=== PATIENT | female | born 1985 | race Caucasian/White ===

== ENCOUNTER 2017-09-18 05:03 | Outpatient (CLI) | payer BC | END 2017-09-18 23:59 | disposition home or self-care (01) | LOC: DIABETIC 05:03 | PROVIDERS: ATTEND Family Medicine | DX: E11.9 Type 2 diabetes mellitus without complications (principal) | CPT/HCPCS: G0108 ==

== ENCOUNTER 2023-09-09 11:01 | Emergency (ER) | payer BC ==
[~2023-09-09] VITALS: Ht 172.7 cm; Wt 178.8 kg
[2023-09-09 11:12] VITALS: BP 142/85; PULSE 102; TEMP 97.7; O2SAT 94
[2023-09-09] MEDS ORDERED: CYCL-1 PO (11:34)
[2023-09-09] MEDS ORDERED: PRED20TA PO (11:34)
[2023-09-09] MEDS ORDERED: diazepam inj 5 MG/ML inj. IM ONE (11:35)
[2023-09-09] MEDS ORDERED: ketorolac trometh inj. 60 MG/2 ML VIAL IM ONE (11:35)
[2023-09-09 11:44] VITALS: RESP 18
== END 2023-09-09 11:51 | disposition home or self-care (01) ==
LOC: ER 11:02
DX: M54.31 Sciatica, right side (principal); E03.9 Hypothyroidism, unspecified; E11.9 Type 2 diabetes mellitus without complications; Z88.0 Allergy status to penicillin; Z79.899 Other long term (current) drug therapy
CPT/HCPCS: 96372; 99284; J1885; J3360

== ENCOUNTER 2023-10-08 07:40 | Emergency (ER) | payer BC ==
[~2023-10-08] VITALS: Ht 172.7 cm; Wt 176.0 kg
[~2023-10-08 07:40] MED LIST: CYCL-1 PO; PRED20TA PO
[2023-10-08 08:38] VITALS: BP 147/96; PULSE 93; O2SAT 95
[2023-10-08] MEDS ORDERED: LOSA50TA64 (08:38)
[2023-10-08] MEDS ORDERED: EMPA10TA (08:38)
[2023-10-08] MEDS ORDERED: LEVO25TA (08:38)
[2023-10-08] MEDS ORDERED: BUPR75TA3 (08:38)
[2023-10-08] MEDS ORDERED: TIRZ10PE (08:38)
[2023-10-08] MEDS ORDERED: DULO20CA50 (08:38)
[2023-10-08] MEDS ORDERED: ketorolac trometh. 30mg/ml inj. IM ONE (09:40)
[2023-10-08 10:13] VITALS: RESP 16
[2023-10-08 10:57] VITALS: TEMP 98.1
== END 2023-10-08 10:58 | disposition home or self-care (01) ==
LOC: ER 07:40
DX: M79.671 Pain in right foot (principal); E07.9 Disorder of thyroid, unspecified; E11.9 Type 2 diabetes mellitus without complications; Z88.0 Allergy status to penicillin; Z88.1 Allergy status to other antibiotic agents; Z79.899 Other long term (current) drug therapy
CPT/HCPCS: 93971; 96372; 99285; J1885

== ENCOUNTER 2025-08-14 17:19 | Emergency (ER) | payer BC, MEDICAID ==
[~2025-08-14] VITALS: Ht 172.7 cm; Wt 189.1 kg
[~2025-08-14 17:19] MED LIST changes: +BUPR75TA3; +DULO20CA50; +EMPA10TA; +LEVO25TA; +LOSA50TA64; -PRED20TA PO; +TIRZ10PE
[2025-08-14 17:32] VITALS: BP 151/89; PULSE 123; RESP 24; TEMP 102.9; O2SAT 95
--- NOTE | 2025-08-14 17:49 | ELECTROCARDIOGRAPH REPORT ---
[facility] Test Date: 2025-08-14 Test Time: 17:47:59 Pat Name: MARCY RIVER Department: EMERGENCY ROOM Patient ID: [facility]-[id number] Room: Gender: F Communications Strategist: LAURIE : 1985 Requested By: BEST [place] Order Number: [id number] Reading MD: Dr. AUBREY Srivastava Measurements Intervals [place] Rate: 128 P: 48 PA: 131 QRS: -47 QRSD: 75 T: 50 QT: 284 QTc: 415 Interpretive Statements Sinus tachycardia Left axis deviation Abnormal inferior Q waves Anterior infarct, old Electronically Signed On 08-16-2025 13:08:[address] AUBREY Srivastava Please click the below link to view image of tracing.
--- NOTE | 2025-08-14 18:09 | RADIOLOGY REPORT ---
CHEST RADIOGRAPH Indication: R/O PNEUMONIA Technique: Single frontal view of the chest was obtained COMPARISON: None FINDINGS: Lines and Tubes: None Lungs: Patchy bilateral airspace opacities, greater throughout the right upper lobe. Pleura: No effusion. No pneumothorax. Cardiomediastinal contours: Unremarkable Bones: Unremarkable IMPRESSION: Patchy bilateral airspace opacities, greater throughout the right upper lobe. Findings are concerning for pneumonia
[2025-08-14 18:45] LABS: MEAN PLATELET VOLUME 7.8 FL (7.4-10.4); RED CELL DISTRIBUTION WIDTH 14.5 % (11.5-14.5)
[2025-08-14 19:00] LABS: CREATININE 0.87 MG/DL (0.40-0.90); TOTAL CARBON DIOXIDE 28.2 MMOL/L (24-32); eCRCL 85 ML/MIN; eGFR 71 ML/MIN
[2025-08-15] MEDS ORDERED: SEMA2PEN (17:09)
== END 2025-08-14 21:31 | disposition left against medical advice (07) ==
LOC: ER 17:20
DX: R05.9 Cough, unspecified (principal); R51.9 Headache, unspecified; R07.9 Chest pain, unspecified
CPT/HCPCS: 36415; 71045; 80053; 84145; 85025; 87040; 93005; 96374; 99281; 99283; 99285

== ENCOUNTER 2025-08-15 10:07 | Inpatient (IN) | payer BC, MEDICAID ==
[2025-08-15] VITALS (8 sets, daily range): BP systolic 133–144; BP diastolic 75–93; PULSE 96–118; RESP 16–20; TEMP 97.3–99.9; O2SAT 94–97
[~2025-08-15] VITALS: Ht 172.7 cm; Wt 180.9 kg
[2025-08-15] MEDS: normal saline 1000ml 1,000 ML IV SCH (03:40)
[2025-08-15 10:43] LABS: MEAN PLATELET VOLUME 7.3 FL (7.4-10.4); RED CELL DISTRIBUTION WIDTH 14.5 % (11.5-14.5)
[2025-08-15 10:59] LABS: CREATININE 0.90 MG/DL (0.40-0.90); TOTAL CARBON DIOXIDE 28.7 MMOL/L (24-32); eCRCL 82 ML/MIN; eGFR 69 ML/MIN
--- NOTE | 2025-08-15 12:12 | Physician Documentation ---
Addendum CHIEF COMPLAINT/HPI: The patient is a 40-year-old female with a 3-4 day history of cough, malaise and chest pain. She was here yesterday and had some laboratory studies done but it was quite crowded and she never made it to a bed before she eloped. She returns today with the same symptoms. REVIEW OF SYSTEMS: Constitutional: Denies chills, fatigue, fever, weight gain or weight loss. HEENT: Denies hearing loss, sinus pressure or visual changes. Respiratory: Denies cough, shortness of breath or wheezing. Cardiovascular: Denies chest pain, pain while walking (claudication), edema or palpitations. Gastrointestinal: Denies abdominal pain, blood in stool, constipation, diarrhea, heartburn, loss of appetite, nausea or vomiting. Genitourinary: Denies painful urination (dysuria), excessive amount of urine (polyuria) or urinary frequency. Metabolic/Endocrine: Denies cold intolerance, heat intolerance, excessive thirst (polydipsia) or excessive hunger (polyphagia). Neurological: Denies dizziness, extremity numbness, extremity weakness, headaches, seizures or tremors. Psychiatric: Denies anxiety or depression. Integumentary: Denies breast discharge, breast lump, hives, mole change(s), rash or skin lesion. Musculoskeletal: Denies back pain, joint pain, joint swelling or neck pain. Hematologic: Denies easily bleeding, easily bruises, lymphedema or issues with blood clots. Immunologic: Denies food allergies or seasonal allergies. PHYSICAL EXAMINATION: Vitals and nursing note reviewed. Constitutional: General: Patient is awake, alert, oriented x 4 in no acute distress and well appearing. Speech is clear and lucid. Appearance: Normal appearance. Patient is not ill-appearing, toxic-appearing or diaphoretic. HENT: Head: Normocephalic and atraumatic. Mouth: Mucous membranes are moist. Pharynx: Oropharynx is clear. Eyes: General: No scleral icterus. Extraocular Movements: Extraocular movements intact. Pupils: Pupils are equal, round, and reactive to light. Neck: Supple, no Kernig or Brudzinski sign. Cardiovascular: Rate and Rhythm: Normal rate and regular rhythm. Heart sounds: No murmur heard. Pulmonary: Effort: Mild tachypnea. Breath sounds: Wheezing and rales right upper lung field. Abdominal: General: There is no distension. Palpations: There is no fluid wave, hepatomegaly or mass. Tenderness: There is no abdominal tenderness. There is no guarding. Musculoskeletal: General: No swelling or deformity. Skin: Coloration: Skin is not jaundiced. Findings: No erythema or rash. Neurological: Mental Status: Patient is alert. MEDICAL DECISION MAKING: This 40-year-old female has a 3-4 day history of cough associated with chest pain. She has findings on chest x-ray consistent with pneumonia in the right upper lobe. Yesterday's CBC revealed a leukocytosis although today's white count has normalized. She does meet sepsis criteria. I am going to start her on fluids and antibiotics. She will require admission. Departure Disposition: ADMITTED INPATIENT Admitted to Inpatient Unit: to hospitalist Admission Level of Care: Med/Surg with Tele Impression: Primary Impression: Pneumonia Condition: BEST Doran MD Aug 15, 2025 12:12
[2025-08-15 12:21] LABS: LEUKOCYTE ESTERASE ,URINE NEGATIVE (Neg); NITRITES, URINE POSITIVE (Neg); OCCULT BLOOD,URINE NEGATIVE (Neg)
[2025-08-15 12:29] LABS: UA COLLECTION TYPE CLN CATCH MIDSTREAM
[2025-08-15 12:30] LABS: URINE HCG NEGATIVE (NEG)
[2025-08-15 12:31] LABS: MUCUS STRANDS FEW /LPF (Neg); SQUAMOUS EPITHELIAL CELL,UR MANY /LPF (FEW)
[2025-08-15 12:36] LABS: INFLUENZA TYPE A ANTIGEN RAPID NEGATIVE (Negative); INFLUENZA TYPE B ANTIGEN RAPID NEGATIVE (Negative)
[2025-08-15] MEDS: normal saline 1000ml 1,000 ML IV ONE ×2 (12:37→13:36)
[2025-08-15] MEDS: CefTRIAXone 2gm/D5W 50ml BAG 50 ML IV ONE (12:40)
[2025-08-15] MEDS: ipratropium/albuterol 3ml nebule NEB STA (12:43)
[2025-08-15] MEDS ORDERED: mag hydrox/Alum hydrox/simeth 30ml oral suspension PO PRN (13:10)
[2025-08-15] MEDS ORDERED: potassium Cl 20 mEq SR tablet PO PRN ×4 (13:10→15:10)
[2025-08-15] MEDS ORDERED: potassium Cl 40MEQ/1/2NS 520ml 520 ML IV PRN ×2 (13:10→15:10)
[2025-08-15] MEDS ORDERED: ondansetron/PF 4mg/2ml inj IV PRN (13:10)
[2025-08-15] MEDS ORDERED: magnesium sulf-water 4G/100mL 100 ML IV PRN ×2 (13:10→15:10)
[2025-08-15] MEDS ORDERED: magnesium hydroxide 30ml (MOM) UD suspension PO PRN (13:10)
[2025-08-15] MEDS ORDERED: magnesium Cl slow-release 64mg tablet PO PRN ×2 (13:10→15:10)
[2025-08-15] MEDS ORDERED: magnesium sulf-water 2g/50mL 50 ML IV PRN ×2 (13:10→15:10)
[2025-08-15] MEDS: azithromycin/NS 500mg/250ml 250 ML IV ONE (13:13)
[2025-08-15] MEDS ORDERED: albuterol 2.5 MG/3 ML nebule NEB PRN (13:20)
[2025-08-15] MEDS ORDERED: glucagon, human recombinant 1mg kit SUBCUT PRN (13:25)
[2025-08-15] MEDS ORDERED: DEXTROSE 15 GM of carb/4 tabs (each vial/BOTTLE has 4 tablets) PO PRN ×2 (13:25)
[2025-08-15] MEDS ORDERED: dextrose 50%-water 50ml dispensing syringe IV PRN ×2 (13:25)
[2025-08-15 14:17] LABS: APTT 27 SECONDS (22-32); INR 1.1 INR
--- NOTE | 2025-08-15 14:17 | ELECTROCARDIOGRAPH REPORT ---
[facility] Test Date: 2025-08-15 Test Time: 14:15:16 Pat Name: MARCY RIVER Department: [facility] Patient ID: [id number] Room: [place] [address] Gender: F Retail Support Specialist: : 1985 Requested By: LOKESH COLLINS Order Number: [id number] Reading MD: Dr. AUBREY Srivastava Measurements Intervals [place] Rate: 107 P: 48 NM: 146 QRS: -12 QRSD: 92 T: 63 QT: 339 QTc: 453 Interpretive Statements Sinus tachycardia Low voltage, precordial leads Electronically Signed On 08-16-2025 13:08:[address] AUBREY Srivastava Please click the below link to view image of tracing.
--- NOTE | 2025-08-15 14:20 | HISTORY AND PHYSICAL-Residence ---
History & Physical Providers to Resident Creating Document: ROSALIOADENLOKESH, RES ~ History of Present Illness Primary Medical Doctor: DR. RUBEN RIVER Reason for Admit\Complaint: Cough History of Present Illness 40-year-old female with history of hypertension, type 2 diabetes mellitus, hypothyroidism, exercise-induced asthma came to the ER with symptoms of cough since 3-4 days and mild shortness of breath. She came to the ER yesterday but she left before the labs and imaging came in. She states that her cough is productive with greenish sputum. She denies nasal congestion. She reports having fever and sweats. She endorses having a bad headache, nausea and generalized body aches. She has no history of COPD, does not use oxygen at home. Her son has had dry cough for the past 2 weeks. She denies recent travel history did not have a flu shot this year. She also reports mild central constant aching type of chest pain for the past few days with no radiation. She has decreased p.o. intake for the past few days. She denies orthopnea, PND, palpitations, burning micturition, dizziness, confusion. Her PCP is Dr. Arevalo in [facility], she has recently been established with him She used to see medical claims assistant for diabetes mellitus, but due to issues with insurance, she has not been following up with the medical claims assistant She lives at home with her and children She can ambulate independently Allergies: Coded Allergies: Penicillins (Verified Allergy, Unknown, 08/15/25) vancomycin (Verified Adverse Reaction, Unknown, HORACIO SYNDROME, 08/15/25) Home Medications Home Medications Active Cyclobenzaprine* (Cyclobenzaprine HCl) 10 Mg Tablet 1 Tab PO TID Reported Mounjaro (Tirzepatide) 10 Mg/0.5 Ml Pen.injctr Jardiance (Empagliflozin) 10 Mg Tablet Wellbutrin (Bupropion HCl) 75 Mg Tablet Cymbalta (Duloxetine Hcl) 20 Mg Capsule. Levo-T (Levothyroxine Sodium) 25 Mcg Tablet Losartan Potassium 50 Mg Tablet Past Medical History Past Medical History Hypertension Type 2 diabetes mellitus Hypothyroidism Exercise-induced asthma Past Surgical History Surgical History Comment C-sections No other significant surgical history Past Social History Social History Comment She quit smoking 2 years ago, she used to smoke a pack a day for 25 years She eats marijuana edibles since she was 13 She denies alcohol use Her PCP is Dr. Arevalo in [facility], she has recently been established with him She used to see medical claims assistant for diabetes mellitus, but due to issues with insurance, she has not been following up with the medical claims assistant She lives at home with her and children She can ambulate independently Alcohol Use: Occasionally Lives In: Home ROS ROS Constitutional: Reports fever and generalized body pain, No chills, dizziness, weight gain or loss Eyes: No pain, erythema, discharge, blurring of vision ENT: No sore throat, epistaxis, tinnitus Cardiovascular: Reports chest pain, No palpitations, syncope, lower extremity edema, paroxysmal nocturnal dyspnea Respiratory: Reports Shortness of breath and cough, No hemoptysis. Gastrointestinal: Reports nausea, No Abdominal pain, vomiting, constipation,diarrhea. Normal appetite. No hematemesis or melena. Musculoskeletal: No Swelling, pain in bilateral lower legs. Integumentary: No change in skin, hair, nails. No swelling, bruising, abrasions Neurologic: Reports headache, No neck pain, numbness or tingling of the extremities, Psychiatric: No delusions, depression, loss of interest in normal activity or change in sleep pattern, hallucinations, suicidal ideations Endocrine: Reports weakness, No polydipsia, polyuria, change in appetite, heat or cold intolerance, sweating, dry skin Hematological: No bleeding, petechiae, bruising Allergies: No asthma or urticaria Exam Vitals: Vital Signs Date Time Temp Pulse Resp B/P (MAP) Pulse Ox O2 Delivery O2 Flow Rate FiO2 08/15/25 13:14 102.5 113 24 132/77 (95) 94 0 08/15/25 12:49 Room Air* 21 General: Awake , alert, and oriented x4, obese, in mild distress due to shortness of breath and cough HEENT: Atraumatic, normocephalic, EOMI, anicteric sclera ; pink conjunctiva, dry mucous membranes Neck: Trachea midline. Supple, full range of motion, no JVD Cardiac: Regular rhythm, regular rate with no murmurs all over the precordium. Respiratory: Diminished breath sounds bilaterally with wheezing, tachypneic, no rub or rales, Chest wall is symmetric and without deformity. Gastrointestinal: Abdomen symmetric, non-distended, soft, non-tender, normal bowel sounds, no hepatosplenomegaly Musculoskeletal: No pedal edema, no cyanosis Neurological: Speech is clear, alert, and oriented x 4. No motor or sensory deficit, deep tendon reflexes normal, cerebellar intact. Cranial nerves II-XII intact. Skin: Warm and dry Diagnostic Data Last Recorded Lab Results: 08/15/25 1034 08/15/25 1034 Advance Care Planning Advanced Care plannin - 30 Minutes (Full code) Additional Plan Sepsis 2/2 community-acquired pneumonia covering Gram-positive and Gram-negative organisms Possible COPD exacerbation Patient is tachypneic with respiratory rate in 20s SIRS criteria met Oxygen saturation is 95% on room air WBC is normal Procalcitonin and lactic acid are normal COVID and influenza tests are negative Chest x-ray (08/14/25) shows multifocal consolidation Wells score is 1.5, follow up D-dimer Plan: Started IV Rocephin 1 g and IV azithromycin 500 mg-day 1 IV methylprednisolone 125 mg was given Started IV methylprednisolone 40 mg b.i.d. NS at 100 mL/hour Started DuoNebs- Ipratropium/albuterol scheduled q.4h and albuterol p.r.n. Incentive spirometry Follow up sputum cultures and blood cultures UTI. Increased micturition. Patient denies burning micturition Urinalysis is positive for UTI Follow up urine cultures Follow up urine drug screen Started on IV Rocephin-day 1 Type 2 diabetes mellitus, poorly controlled Patient uses Jardiance 10 mg and Ozempic at home Follow up A1c Glucose is elevated- 277 Goal glucose is 140-180 Started Lantus 8 units h.s. Started medium-dose hyperglycemic hypoglycemic protocol Monitor glucose Hypothyroidism She used to take levothyroxine 88 mcg at home, recently discontinued in April as she was establishing care with new PCP Follow up TSH Hypertension Blood pressure is on the higher side She used to take losartan 50 mg at home, but discontinued in April Started losartan 50 mg Monitor blood pressure History of Exercise induced asthma Patient uses albuterol p.r.n. She has not had to use it for a long time Started DuoNebs # Pending med reconciliation # Morbid obesity: Advised to lose weight. She is working with her PCP. Advised sleep study as an outpatient. Apparently has some obesity hypoventilation syndrome as well. I spent a total of 18 minutes reviewing various resuscitative measures/ACP with the patient. The patient decided to be full code. Code status: Full code DVT prophylaxis: Heparin subQ GI prophylaxis: Pantoprazole 40 mg p.o. Pain management: Tylenol p.r.n. Diet/nutrition: Carb controlled diet Prognosis: Guarded Disposition: Continue IV antibiotics, steroids and DuoNebs, PT eval and DC plan Resident MD attestation: The patient note has been reviewed and supervised by senior residents PGY-2/ PGY-3. Patient was seen, examined and discussed with attending physician, Dr. Zac Collins MD Internal Medicine resident, PGY-1 Date of Service: Aug 15, 2025 Billing Provider: CHUNG HENNING MD Common Visit Codes: 35262-[id number] INP/OBS CARE (HIGH) LOKESH COLLINS, RES Aug 15, 2025 14:19 CHUNG HENNING MD Aug 18, 2025 14:08
[2025-08-15 14:26] LABS: CREATININE 0.73 MG/DL (0.40-0.90); PHOSPHORUS 1.6 MG/DL (2.3-4.5); PRO BRAIN NATRIURETIC PEPTIDE 84 PG/ML (0-125); TOTAL CARBON DIOXIDE 25.8 MMOL/L (24-32); eCRCL 101 ML/MIN; eGFR 87 ML/MIN
[2025-08-15] MEDS: ipratropium/albuterol 3ml nebule NEB SCH (15:00)
[2025-08-15] MEDS ORDERED: SEMA2PEN (17:09)
[2025-08-15] MEDS: lactobacillus rhamnosus 10,000 MMU CELLS/CAPSULE PO SCH (17:33)
[2025-08-15] MEDS: pantoprazole 40mg Tablet.DR PO SCH (17:33)
[2025-08-15] MEDS: magnesium sulf-water 2g/50mL 50 ML IV ONE (17:34)
[2025-08-15] MEDS: K and/or MAG REPLACEMENT MC SCH (20:00)
[2025-08-15] MEDS ORDERED: K and/or MAG REPLACEMENT MC SCH (20:00)
[2025-08-15] MEDS: docusate sod 100mg capsule PO SCH (20:10)
[2025-08-15] MEDS: methylPREDNISolone sod succ/PF 40mg inj. IV SCH (20:11)
[2025-08-15] MEDS: enoxaparin 40mg/0.4ml syringe SQ SCH (20:14)
[2025-08-15] MEDS: INSULIN LISPRO 100 UNIT/ML INSULN.PEN MULTI-DOSE SQ SCH (21:00)
[2025-08-15] MEDS: insulin regular, human 10 units/0.1 ml syringe IV ONE (21:03)
[2025-08-15] MEDS: insulin glargine (Lantus) pen - multi-dose SQ SCH (21:47)
[2025-08-15] MEDS: insulin regular, human U-100 10ml vial - multi-dose IV ONE (22:10)
[2025-08-16] VITALS (18 sets, daily range): BP systolic 100–156; BP diastolic 62–79; PULSE 91–108; RESP 12–22; TEMP 97–98.2; O2SAT 95–99
[2025-08-16 06:04] LABS: MEAN PLATELET VOLUME 7.9 FL (7.4-10.4); RED CELL DISTRIBUTION WIDTH 14.2 % (11.5-14.5)
[2025-08-16 06:31] LABS: CHOL/HDL RATIO 3.9 (0.00-4.99); CREATININE 0.76 MG/DL (0.40-0.90); LDL CHOLESTEROL 96 MG/DL (50-100); TOTAL CARBON DIOXIDE 20.4 MMOL/L (24-32); eCRCL 97 ML/MIN; eGFR 83 ML/MIN
[2025-08-16] MEDS: azithromycin/NS 500mg/250ml 250 ML IV SCH (07:32)
[2025-08-16] MEDS: CefTRIAXone/D5W-Rocephin 1gm 50 ML IV SCH (07:32)
[2025-08-16] MEDS: INSULIN LISPRO 100 UNIT/ML INSULN.PEN MULTI-DOSE SQ ONE (07:37)
[2025-08-16] MEDS: guaiFENesin ER 600mg tablet PO SCH (09:34)
[2025-08-16] MEDS: INSULIN LISPRO 100 UNIT/ML INSULN.PEN MULTI-DOSE SQ SCH ×2 (09:35→15:55)
--- NOTE | 2025-08-16 12:07 | PROGRESS NOTE- Residence ---
Progress Note - Resident Providers to CC Resident Creating Document: LOKESH COLLINS RES ~ Antibiotic Timeout Antibiotic Ordered?: Yes Subjective Patient was seen and examined bedside. She states she feels better, and that her cough and shortness of breath have improved. Her sputum is brownish yellowish. She reports mild headache. She denies chest pain, fever, chills, nausea, vomiting, burning micturition or any other complaints. She is saturating well on room air. Objective Vital Signs Date Time Temp Pulse Resp B/P (MAP) Pulse Ox O2 Delivery O2 Flow Rate FiO2 08/16/25 08:08 103 16 Room Air 0.0 08/16/25 08:01 97 21 08/16/25 02:00 97.0 125/79 (94) Result Diagram: 08/16/25 0538 08/16/25 0538 Awake , alert, and oriented x4, resting comfortably in the bed, in no acute distress. Morbidly obese. HEENT: Atraumatic, normocephalic, EOMI, anicteric sclera ; pink conjunctiva Neck: Trachea midline. Supple, full range of motion, no JVD Cardiac: Regular rhythm, regular rate with no murmurs all over the precordium. Respiratory: Diminished breath sounds bilaterally with wheezing, no tachypnea,,rub or rales, Chest wall is symmetric and without deformity. Gastrointestinal: Abdomen symmetric, non-distended, soft, non-tender, normal bowel sounds x4 quadrant, normoactive, no hepatosplenomegaly Musculoskeletal: No pedal edema, no cyanosis Neurological: Speech is clear, alert, and oriented x 4. No motor or sensory deficit, deep tendon reflexes normal, cerebellar intact. Cranial nerves II-XII intact. Skin: Warm and dry Coagulation Studies Laboratory Tests Test 08/15/25 13:53 Prothrombin Time 11.5 SECONDS (9.0-12.0) INR International Normalized Ratio 1.1 INR Activated Partial Thromboplast Time 27 SECONDS (22-32) D-Dimer 1.09 MG/L FEU (0-0.50) H D-Dimer Comment Coagulation Comments Assessment Assessment 40-year-old female with history of hypertension, type 2 diabetes mellitus, hypothyroidism, morbid obesity, and exercise-induced asthma admitted for management of sepsis and pneumonia. Plan Plan Sepsis 2/2 community-acquired pneumonia covering Gram-positive and Gram-negative organisms Sepsis, resolved Possible COPD exacerbation Patient is saturating well on room air WBC is normal COVID and influenza tests are negative Chest x-ray (08/14/25) shows multifocal consolidation Plan: Continue IV Rocephin 1 g and IV azithromycin 500 mg-day 2 Methylprednisolone morning dose was held due to high blood sugar Continue IV methylprednisolone 40 mg b.i.d., consider transitioning to p.o. prednisone if blood glucose levels continue to be elevated NS decreased from 100 to 75 mL/hour Continue DuoNebs- Ipratropium/albuterol scheduled q.4h and albuterol p.r.n. Incentive spirometry and flutter valve Started guaifenesin 600 mg b.i.d. Wells score is 1.5, D-dimer is mildly elevated-1.09 Follow up echo Follow up sputum cultures and blood cultures UTI Patient denies burning micturition, but complained of increased frequency in the night Urinalysis is positive for UTI Follow up urine cultures Follow up urine drug screen Continue IV Rocephin-day 2 Type 2 diabetes mellitus, poorly controlled Patient uses Jardiance 10 mg and Ozempic at home A1C is 7 Glucose is poorly controlled, 442 today-19 units of lispro was given in the a.m. Bicarbonate is 20.4, anion gap is normal, DKA unlikely Goal glucose is 140-180 Increased Lantus to 18 units h.s. On high-dose hyperglycemic hypoglycemic protocol Started lispro 6 units with meals On 60 g carb controlled diet Monitor glucose Hypothyroidism She used to take levothyroxine 88 mcg at home, recently discontinued in April as she was establishing care with new PCP TSH is normal Hypertension Blood pressure is stable She used to take losartan 50 mg at home, but discontinued in April Continue losartan 50 mg History of Exercise induced asthma Patient uses albuterol p.r.n. She has not had to use it for a long time Continue DuoNebs # Morbid obesity: Advised to lose weight. She is working with her PCP. Advised sleep study as an outpatient. Apparently has some obesity hypoventilation syndrome as well. Code status: Full code DVT prophylaxis: Heparin subQ GI prophylaxis: Pantoprazole 40 mg p.o. Pain management: Tylenol p.r.n. Diet/nutrition: 60 g Carb controlled diet Prognosis: Guarded Disposition: Continue IV antibiotics, steroids and DuoNebs, monitor glucose, PT eval and DC plan Resident MD attestation: The patient note has been reviewed and supervised by senior residents PGY-2/ PGY-3. Patient was seen, examined and discussed with attending physician, Dr. Zac Collins MD Internal Medicine resident, PGY-1 Date of Service: Aug 16, 2025 Billing Provider: CHUNG HENNING MD Common Visit Codes: [id number] INP/OBS CARE (HIGH) LOKESH COLLINS, RES Aug 16, 2025 12:07 CHUNG HENNING MD Aug 18, 2025 14:10
[2025-08-16] MEDS: PERFLUTREN PROTEIN-A MICROSPHR (Optison) 0.22 MG/ML 3ML VIAL IV ONE (12:15)
[2025-08-16 13:20] LABS: URINE AMPHETAMINE SCREEN NEGATIVE (Neg); URINE BARBITUATE SCREEN NEGATIVE (Neg); URINE BENZODIAZEPINES SCREEN NEGATIVE (Neg); URINE CANNABINOID SCREEN POSITIVE (Neg); URINE COCAINE SCREEN NEGATIVE (Neg); URINE METHADONE SCREEN NEGATIVE (Neg); URINE OPIATE SCREEN NEGATIVE (Neg); URINE PHENCYCLIDINE SCREEN NEGATIVE (Neg)
[2025-08-16] MEDS: insulin glargine (Lantus) pen - multi-dose SQ SCH (20:32)
[2025-08-17] VITALS (10 sets, daily range): BP systolic 144–152; BP diastolic 73–91; PULSE 82–116; RESP 16–18; TEMP 97.2–98.6; O2SAT 96–98
[2025-08-17 07:05] LABS: MEAN PLATELET VOLUME 7.9 FL (7.4-10.4); RED CELL DISTRIBUTION WIDTH 14.9 % (11.5-14.5)
[2025-08-17 07:49] LABS: CREATININE 0.88 MG/DL (0.40-0.90); TOTAL CARBON DIOXIDE 22.3 MMOL/L (24-32); eCRCL 84 ML/MIN; eGFR 70 ML/MIN
[2025-08-17] MEDS: INSULIN LISPRO 100 UNIT/ML INSULN.PEN MULTI-DOSE SQ SCH (08:44)
--- NOTE | 2025-08-17 09:40 | CARDIOLOGY REPORT ---
APPROVED REPORT EXAM: Comprehensive 2D, Doppler, and color-flow Echocardiogram. Patient Location: 3[address] Heart Rate: 90's bpm Rhythm: SINUS Indications SHORTNESS OF BREATH DIABETES MELLITUS 2 HYPTERTENSION CHEST PAIN Farmworker: NONE Previous echo: NONE 2D Dimensions LVDd 5.8 cm LVDs 4.3 (2.5-4.0cm) LVOT Diameter 2.05 (1.8-2.4cm) M-Mode Dimensions Left Atrium(MM) 4.43 (2.5-4.0cm) Aortic Root 2.96 (2.2-3.7cm) Aortic Cusp Exc 1.96 (1.5-2.0cm) Aortic Valve AoV Peak [place]. 177.2 cm/s AoV VTI 29.2 cm AO Peak GR. 12.6 mmHg AO Mean GR. 7 mmHg LVOT VTI 23.39 cm LVOT Peak [place]. 143.8 cm/s LOUISA(VTI)/BSA 2.64 cm2/m2 LOUISA (VTI) 2.64 cm2 AV DI 0.80 % Mitral Valve MV Peak Gr. 10 mmHg MV PHT 64 ms MVA (PHT) 3.44 cm2 MV VMax 156.4 cm/s LEFT VENTRICLE Dilated LV size with normal appearing wall thickness. Overall systolic function is normal. Overall LVEF is 55-60%. RIGHT VENTRICLE RV appears at least mildly dilated with normal function. ATRIA Left atrium is mildly dilated. AORTIC VALVE Poorly visualized AV appears normal without stenosis. No insufficiency by color and spectral flow Doppler. MITRAL VALVE Mild MV annular calcification without stenosis. Trace regurgitation by color and spectral flow Doppler. TRICUSPID VALVE TV appears structurally normal with trace regurgitation by color and spectral flow Doppler. PULMONIC VALVE Normal PV without stenosis, physiologic insufficiency by color and spectral flow Doppler. GREAT VESSELS The aortic root is normal in size. PERICARDIUM Normal pericardium. No effusion. Other Information Study Quality: Difficult due to body habitus. Conclusion Overall LVEF is 55-60%. Dilated LV size with normal appearing wall thickness. Overall systolic function is normal. RV appears at least mildly dilated with normal function. Poorly visualized AV appears normal without stenosis. No insufficiency by color and spectral flow Doppler. Mild MV annular calcification without stenosis. Trace regurgitation by color and spectral flow Doppler. TV appears structurally normal with trace regurgitation by color and spectral flow Doppler. Normal PV without stenosis, physiologic insufficiency by color and spectral flow Doppler. Normal pericardium. No effusion.
[2025-08-17] MEDS ORDERED: PRED10TA23 PO (14:21)
[2025-08-17] MEDS ORDERED: LACT1CAP26 PO (14:21)
[2025-08-17] MEDS ORDERED: ALBU2.5V7 NEB (14:21)
[2025-08-17] MEDS ORDERED: NOR5T PO (14:21)
[2025-08-17] MEDS ORDERED: GUAI600T45 PO (14:21)
[2025-08-17] MEDS ORDERED: CEFD300C3 PO (14:21)
--- NOTE | 2025-08-17 15:08 | DISCHARGE SUMMARY-Residence ---
Discharge Summary Providers to CC Resident Creating Document: LOKESH COLLINS RES CC: CHUNG HENNING MD ~ Discharge Summary Admission Diagnosis: Pneumonia Hospital Course DATE OF ADMISSION: 08/15/2025 DATE OF DISCHARGE: 08/17/2025 Discharge Diagnosis\Comment: Sepsis 2/2 community-acquired pneumonia covering Gram-positive and Gram-negative organisms COPD exacerbation UTI Type 2 diabetes mellitus, poorly controlled Hypothyroidism Hypertension History of Exercise induced asthma Operations\Procedures: none Consultants: none Complications: none Condition on DC: Stable New Medications: Cefdinir* (Cefdinir*) 300 Mg Capsule 1 CAP PO Q12H for 4 Days, #8 CAP Prednisone (Prednisone) 10 Mg Tablet 1 TABLET PO DAILY for 6 Days, #7 TABLET Please take 2 tablets (20 mg) for 2 days Take 1 tablet (10 mg) for next 2 days Take 1/2 tablet (5 mg ) for next 2 days Albuterol Sulfate (Albuterol Sulfate) 2.5 Mg/3 Ml Vial.neb 2.5 MG NEB Q2H PRN for SOB or wheezing for 30 Days, #1 INH Amlodipine Besylate (Amlodipine Besylate) 5 Mg Tablet 10 MG PO DAILY for 30 Days, #60 TAB Guaifenesin (Mucinex) 600 Mg Tablet.sa 600 MG PO Q12H for 7 Days, #7 TAB.SR Lactobacillus Rhamnosus (Culturelle) 10 Billion Cell Capsule 08560 MMU PO DAILY for 7 Days, #7 CAP Continued Medications: Losartan Potassium (Losartan Potassium) 50 Mg Tablet Semaglutide (Ozempic) 2 Mg/0.75 Ml (8 Mg/3 Ml) Pen.injctr Discharge Summary: HPI as per admitting physician: 40-year-old female with history of hypertension, type 2 diabetes mellitus, h ypothyroidism, exercise-induced asthma came to the ER with symptoms of cough since 3-4 days and mild shortness of breath. She came to the ER the previous day but she left before the labs and imaging came in. She stated that her cough was productive with greenish sputum. She denied nasal congestion. She reported having fever , sweats, headache, nausea and generalized body aches. She has no history of COPD, does not use oxygen at home. Her son has had dry cough for the past 2 weeks. She denies recent travel history did not have a flu shot this year. She also reports mild central constant aching type of chest pain for the past few days with no radiation. She stated that she had increased frequency of urination during the night. She has decreased p.o. intake for the past few days. She denies orthopnea, PND, palpitations, burning micturition, dizziness, confusion. Hospital Course: Sepsis criteria was met, patient was tachypneic with respiratory rate in 20s. She was saturating well on room air. Chest x-ray showed multifocal consolidation in the previous day. WBC procalcitonin and lactic acid were normal, COVID and influenza tests were negative. She was treated for sepsis with community-acquired pneumonia. She was started on Rocephin 1 g and azithromycin 500 mg. She was given bolus in the ER and started on NS at 100 mL/hour. IV Solu-Medrol 125 mg was given and started on IV methylprednisolone 40 mg b.i.d. Solu-Medrol was held the following day due to high blood sugar. DuoNebs were started and was encouraged to do incentive spirometry. She was started on guaifenesin 600 mg b.i.d. Her urinalysis was positive for UTI and Rocephin was continued for 3 days and she was discharged with cefdinir 300 mg b.i.d. for 4 days. She uses Jardiance 10 mg and Ozempic at home for type 2 diabetes mellitus. Her A1c is 7 and her blood sugars are poorly controlled. She was started on Lantus 8 units and placed on high-dose hyperglycemic hypoglycemic protocol. Lantus was increased to 18 units in the following day and started lispro 6 units with meals along with the high-dose hyperglycemic hypoglycemic protocol. She was on a 60 g carb controlled diet and was encouraged to continue carb controlled diet at home and monitor glucose levels. She used to take le vothyroxine 88 mcg at home for hypothyroidism but recently discontinued in April as she was establishing care with a new PCP, TSH was normal. She was increased to follow up outpatient regarding continuation of levothyroxine and was recommended to follow up TSH in 3-6 months outpatient. Her blood pressure was on the higher side. She used to take losartan 50 mg at home but discon tinued in April and was restarted losartan 50 mg. She uses albuterol p.r.n. for exercise-induced asthma which she has not had to use for a long time. She was saturating well on room air even on the day of discharge and she stated that her cough had improved and sepsis had resolved. Patient did not experience further complications throughout the entire hospital stay. Patient was seen and examined on the day of discharge. All labs, diagnostic workups, discharge plan discussed with the patient in detail during visit before discharge. All questions and concerns answered to the best of my professional knowledge. # Morbid obesity: Advised to lose weight. She is working with her PCP. Advised sleep study as an outpatient. Apparently has some obesity hypoventilation syndrome as well. Imaging: Chest x-ray-08/14/25 Patchy bilateral airspace opacities, greater throughout the right upper lobe. Findings are concerning for pneumonia Echocardiogram-08/16/25 Overall LVEF is 55-60%. Dilated LV size with normal appearing wall thickness. Overall systolic function is normal. RV appears at least mildly dilated with normal function. Poorly visualized AV appears normal without stenosis. No insufficiency by color and spectral flow Doppler. Mild MV annular calcification without stenosis. Trace regurgitation by color and spectral flow Doppler. TV appears structurally normal with trace regurgitation by color and spectral flow Doppler. Normal PV without stenosis, physiologic insufficiency by color and spectral flow Doppler. Normal pericardium. No effusion. Laboratory Tests Test 08/15/25 15:16 08/15/25 17:52 08/15/25 20:19 08/15/25 21:51 Glucometer 208 mg/dl 325 mg/dl 435 mg/dl 420 mg/dl Test 08/15/25 23:22 08/16/25 05:38 08/16/25 09:19 08/16/25 11:45 Glucometer 397 mg/dl 380 mg/dl White Blood Count 8.3 X10'3 Red Blood Count 4.41 X10'6 Hemoglobin 12.2 g/dl Hematocrit 36.3 % Mean Corpuscular Volume 82.3 FL Mean Corpuscular Hemoglobin 27.7 PG Mean Corpuscular Hemoglobin Concent 33.6 g/dL Red Cell Distribution Width 14.2 % Platelet Count 166 X10'3 Mean Platelet Volume 7.9 FL Neutrophils (%) (Auto) 87.2 % Lymphocytes (%) (Auto) 6.5 % Monocytes (%) (Auto) 6.2 % Eosinophils (%) (Auto) 0 % Basophils (%) (Auto) 0.1 % Neutrophils # (Auto) 7.2 X10'3 Lymphocytes # (Auto) 0.5 X10'3 Monocytes # (Auto) 0.5 X10'3 Eosinophils # (Auto) 0.0 X10'3 Basophils # (Auto) 0.0 X10'3 CBC Comment Sodium Level 135 MMOL/L Potassium Level 3.7 MMOL/L Chloride Level 101 MMOL/L Carbon Dioxide Level 20.4 MMOL/L Anion Gap 14 Blood Urea Nitrogen 9 MG/DL Creatinine 0.76 MG/DL Estimated GFR/1.73 m2 83 ML/MIN BUN/Creatinine Ratio 11.8 Glucose Level 442 MG/DL Calcium Level 8.2 MG/DL Magnesium Level 2.0 MG/DL Albumin 2.7 G/DL Triglycerides Level 100 MG/DL Cholesterol Level 148 MG/DL LDL Cholesterol 96 MG/DL HDL Cholesterol 38 MG/DL Cholesterol/HDL Ratio 3.9 Chemistry Comments Urine Opiates Screen Negative Urine Methadone Screen Negative Urine Fentanyl Screen Negative Urine Barbiturates Screen Negative Urine Phencyclidine Screen Negative Urine Amphetamines Screen Negative Urine Benzodiazepines Screen Negative Urine Cocaine Screen Negative Urine Cannabinoids Screen Positive Drug Screen Comment Test 08/16/25 12:45 08/16/25 17:55 08/16/25 20:30 08/17/25 06:21 Glucometer 364 mg/dl 312 mg/dl 333 mg/dl White Blood Count 8.8 X10'3 Red Blood Count 4.10 X10'6 Hemoglobin 11.5 g/dl Hematocrit 33.6 % Mean Corpuscular Volume 82.0 FL Mean Corpuscular Hemoglobin 28.0 PG Mean Corpuscular Hemoglobin Concent 34.2 g/dL Red Cell Distribution Width 14.9 % Platelet Count 205 X10'3 Mean Platelet Volume 7.9 FL Neutrophils (%) (Auto) 85.5 % Lymphocytes (%) (Auto) 9.6 % Monocytes (%) (Auto) 4.5 % Eosinophils (%) (Auto) 0.2 % Basophils (%) (Auto) 0.2 % Neutrophils # (Auto) 7.5 X10'3 Lymphocytes # (Auto) 0.8 X10'3 Monocytes # (Auto) 0.4 X10'3 Eosinophils # (Auto) 0.0 X10'3 Basophils # (Auto) 0.0 X10'3 CBC Comment Sodium Level 137 MMOL/L Potassium Level 4.0 MMOL/L Chloride Level 103 MMOL/L Carbon Dioxide Level 22.3 MMOL/L Anion Gap 12 Blood Urea Nitrogen 13 MG/DL Creatinine 0.88 MG/DL Estimated GFR/1.73 m2 70 ML/MIN BUN/Creatinine Ratio 14.8 Glucose Level 367 MG/DL Calcium Level 8.1 MG/DL Magnesium Level 2.1 MG/DL Albumin 2.8 G/DL Chemistry Comments Test 08/17/25 07:10 08/17/25 12:38 Glucometer 336 mg/dl 188 mg/dl Vital Signs Date Time Temp Pulse Resp B/P (MAP) Pulse Ox O2 Delivery O2 Flow Rate FiO2 08/17/25 11:35 90 16 Room Air 0.0 21 08/17/25 11:27 96 08/17/25 11:00 98.6 152/91 (111) Examination on discharge: Awake , alert, and oriented x4, resting comfortably in the bed, in no acute distress HEENT: Atraumatic, normocephalic, EOMI, anicteric sclera ; pink conjunctiva Neck: Trachea midline. Supple, full range of motion, no JVD Cardiac: Regular rhythm, regular rate with no murmurs all over the precordium. Respiratory: Diminished breath sounds bilaterally with wheezing, no tachypnea,,rub or rales, Chest wall is symmetric and without deformity. Gastrointestinal: Abdomen symmetric, non-distended, soft, non-tender, normal bowel sounds x4 quadrant, normoactive, no hepatosplenomegaly Musculoskeletal: No pedal edema, no cyanosis Neurological: Speech is clear, alert, and oriented x 4. No motor or sensory d eficit, deep tendon reflexes normal, cerebellar intact. Cranial nerves II-XII intact. Skin: Warm and dry Discharge Instructions: Follow up with PCP in 1-2 weeks Continue cefdinir 300 mg for 4 days Monitor glucose daily and continue Ozempic and Jardiance 10 mg Recommended carb controlled diet Please continue prednisone 20 mg for 2 days, 10 mg for 2 days and 5 mg for 2 days Discuss with PCP regarding hypothyroidism, and continue levothyroxine 88 mcg Follow up with TSH in 3 months outpatient Please be compliant with blood pressure medication losartan 50 mg Continue albuterol p.r.n. Go to ER or call 911 for further episodes of shortness of breath, chest pain, palpitations, fever, chills, syncope etc. Time taken for discharge summary > 35 min Lokesh Collins MD Internal Medicine resident, PGY-1 *Problems/Diagnosis: (1) Sepsis (2) Community acquired pneumonia (3) COPD exacerbation (4) UTI (urinary tract infection) (5) Type 2 diabetes mellitus Total Time Spent on D/C: > 30 Minutes Counseling Services Smoking & Tobacco Cessation: N/A Date of Service: Aug 17, 2025 Billing Provider: CHUNG HENNING MD Common Visit Codes: 36230-[facility]/OBS DISCH DAY >30min LOKESH COLLINS, RES Aug 17, 2025 14:26 CHUNG HENNING MD Aug 18, 2025 14:10
[2025-08-17] MEDS ORDERED: insulin glargine (Lantus) pen - multi-dose SQ SCH (21:00)
== END 2025-08-17 15:45 | disposition home or self-care (01) | DRG 871 ==
LOC: ER 10:08 → ED HOLD 12:59 → PCU 3S 15:43
PROVIDERS: ADMIT Family Medicine; ATTEND Family Medicine
DX: A41.50 Gram-negative sepsis, unspecified (principal); J15.69 Pneumonia due to other Gram-negative bacteria; J15.9 Unspecified bacterial pneumonia; J44.0 Chronic obstructive pulmonary disease with (acute) lower respiratory infection; N39.0 Urinary tract infection, site not specified; A41.89 Other specified sepsis; E11.65 Type 2 diabetes mellitus with hyperglycemia; E03.9 Hypothyroidism, unspecified; I10 Essential (primary) hypertension; J44.1 Chronic obstructive pulmonary disease with (acute) exacerbation; Z20.822 Contact with and (suspected) exposure to COVID-19; Z88.1 Allergy status to other antibiotic agents; Z88.0 Allergy status to penicillin; Z87.891 Personal history of nicotine dependence
CPT/HCPCS: 36415; 80048; 80053; 80061; 80305; 81001; 81025; 82948; 83036; 83605; 83735; 83880; 84100; 84145; 84443; 84484; 85025; 85379; 85610; 85730; 87040; 87070; 87088; 87804; 87811; 93005; 93306; 94640; 94760; 96365; 96375; 99285; G0378; J0456; J0696; J1650; J1815; J2919; J7030